=== PATIENT | female | born 1960 | race Caucasian/White ===

== ENCOUNTER → 2016-11-26 | Outpatient (CLI) | payer BC ==
[~2016-11-26] MED LIST: CLARITIN10 M2 PO; FERROUS GLUCON324 M1 PO; FIBER 7 PO; FISH OIL 1,0001 EACH PO; IMIPRAMINE HCL25 MG PO; KLONOPIN1 MG PO; LISINOPRIL10 MG PO; MAGOX 400400 MG PO; METHOCARBAMOL500 MG PO; MULTIVITAMINS1 EAC1 PO; PRILOSEC OTC20 MG PO; PROGESTERO50 MG/1 M1 TD; SYNTHROID125 MCG PO; VITAMIN B12-FO1 EACH PO; VITAMIN D350000 UNIT PO; VIVELLE-DOT1 EAC1 TD; ZINC50 M2 PO
== END ==
LOC: CT 11-16 09:00
DX: K59.09 Other constipation (principal); R10.9 Unspecified abdominal pain; E66.9 Obesity, unspecified; Z98.84 Bariatric surgery status; Z71.3 Dietary counseling and surveillance; K76.0 Fatty (change of) liver, not elsewhere classified
CPT/HCPCS: J7050; Q9962

== ENCOUNTER → 2021-05-29 | Outpatient (CLI) | payer MEDICARE, OTHER | LOC: LAB 13:06 | DX: R10.11 Right upper quadrant pain (principal) | CPT/HCPCS: 36415; 82565; 84520 ==

== ENCOUNTER → 2021-06-04 | Outpatient (CLI) | payer MEDICARE, OTHER | LOC: CT 09:30 | DX: R10.11 Right upper quadrant pain (principal); Z98.890 Other specified postprocedural states; K56.2 Volvulus | CPT/HCPCS: Q9967 ==